=== PATIENT | female | born 1995 ===

== ENCOUNTER 2022-03-27 22:22 | Emergency (ER) | payer SELFPAY ==
[2022-03-28 00:05] VITALS: BP 108/60
[2022-03-28 00:43] LABS: Basophils % (Auto) 0.5 % (0.0-1.8); Eosinophils # (Auto) 0.3 K/mm3 (0.0-0.4); Eosinophils % (Auto) 3.7 % (0.0-4.3); Hematocrit 37.6 % (30.3-42.9); Hemoglobin 12.7 gm/dl (10.1-14.3); Lymphocytes # (Auto) 3.3 K/mm3 (1.2-5.4); Mean Corpuscular HGB Conc 34 % (30-34); Mean Corpuscular Volume 84 fl (79-97); Monocytes # (Auto) 0.5 K/mm3 (0.0-0.8); Monocytes % (Auto) 6.7 % (0.0-7.3); Platelet Count 176 K/mm3 (140-440); Red Blood Count 4.51 M/mm3 (3.65-5.03); Red Cell Distribution Width 13.8 % (13.2-15.2)
[2022-03-28 01:05] LABS: Alanine Aminotransferase 11 units/L (7-56); Albumin 4.5 g/dL (3.9-5); Blood Urea Nitrogen 13 mg/dL (7-17); Calcium 9.4 mg/dL (8.4-10.2); Hemolysis Index 9
[2022-03-28 01:09] LABS: BUN/Creatinine Ratio 26
[2022-03-28] MEDS ORDERED: FAMOTIDINE 20 MG/2 ML INJ IV ONE (02:03)
[2022-03-28] MEDS ORDERED: ONDANSETRON 4 MG/2 ML INJ IV ONE (02:03)
[2022-03-28] MEDS ORDERED: MORPHINE 4 MG/1 ML INJ IV ONE (02:03)
[2022-03-28] MEDS ORDERED: SODIUM CHLORIDE 0.9% 1000 ML 1,000 ML IV ONE (02:03)
--- NOTE | 2022-03-28 03:53 | Emergency Department Report ---
ED Abdominal Pain HPI - General Chief Complaint: Abdominal Pain Stated Complaint: ABDOMINAL PAIN Source: patient Mode of arrival: Ambulatory Limitations: Language Barrier - History of Present Illness Initial Comments: Patient is a 26-year-old female who is A0 who has no past medical history presents to the ED with complaint of acute onset persistent epigastric pain that radiates to the left upper quadrant and left lower quadrant area with intractable nausea and vomiting for the last 3 days. Patient states that her symptoms got worse in the last 12 hours with sore throat with a burning sensation.. Patient also states that she noticed that she was having some specks of blood streaked emesis a few hours before arrival in the ED. Patient denies diarrhea, chest pain, shortness of breath, nasal and sinus congestion, dizziness, syncope, headache, dysuria, urinary frequency and urgency, vaginal bleeding, vaginal discharge, low back pain, fever, chills, cough or palpitations. MD Complaint: abdominal pain (Epigastric, left upper quadrant and left lower quadrant pain), other (Nausea and vomiting) -: days(s) (3) Location: LUQ, LLQ, epigastric Radiation: LUQ, LLQ, epigastric Migration to: no migration Severity scale (0 -10): 7 Quality: cramping, sharp Consistency: constant Improves With: nothing Worsens With: vomiting Associated Symptoms: denies other symptoms, nausea, vomiting, hematemesis, anorexia. denies: diarrhea, fever, chills, constipation, dysuria, hematochezia, melena, hematuria, syncope, other - Related Data LMP Date: 03/05/22 Previous Rx's Medication Instructions Recorded Last Taken Type Dicyclomine [Bentyl] 20 mg PO Q6H PRN #30 tablet 03/28/22 Unknown Rx Famotidine [Pepcid] 20 mg PO BID #60 tablet 03/28/22 Unknown Rx Omeprazole 40 mg PO DAILY #60 tab 03/28/22 Unknown Rx Ondansetron [Zofran Odt] 4 mg PO Q6HR PRN #20 tab.rapdis 03/28/22 Unknown Rx cephALEXin [Keflex] 500 mg PO Q8HR #30 cap 03/28/22 Unknown Rx Allergies Allergy/AdvReac Type Severity Reaction Status Date / Time No Known Allergies Allergy Unverified 03/28/22 00:05 ED Review of Systems ROS: Stated complaint: ABDOMINAL PAIN Other details as noted in HPI Constitutional: denies: chills, fever Eyes: denies: eye pain, eye discharge, vision change ENT: denies: ear pain, throat pain Respiratory: denies: cough, shortness of breath, wheezing Cardiovascular: denies: chest pain, palpitations Endocrine: no symptoms reported Gastrointestinal: abdominal pain, nausea, vomiting, hematemesis. denies: diarrhea Genitourinary: denies: urgency, dysuria, discharge Musculoskeletal: denies: back pain, joint swelling, arthralgia Skin: denies: rash, lesions Neurological: denies: headache, weakness, paresthesias Psychiatric: denies: anxiety, depression Hematological/Lymphatic: denies: easy bleeding, easy bruising ED Past Medical Hx - Medications Home Medications: Home Medications Medication Instructions Recorded Confirmed Last Taken Type Dicyclomine [Bentyl] 20 mg PO Q6H PRN #30 tablet 03/28/22 Unknown Rx Famotidine [Pepcid] 20 mg PO BID #60 tablet 03/28/22 Unknown Rx Omeprazole 40 mg PO DAILY #60 tab 03/28/22 Unknown Rx Ondansetron [Zofran Odt] 4 mg PO Q6HR PRN #20 tab.rapdis 03/28/22 Unknown Rx cephALEXin [Keflex] 500 mg PO Q8HR #30 cap 03/28/22 Unknown Rx ED Physical Exam - General Limitations: Language Barrier General appearance: alert, in no apparent distress - Head Head exam: Present: atraumatic, normocephalic, normal inspection - Eye Eye exam: Present: normal appearance, PERRL, EOMI Pupils: Present: normal accommodation - ENT ENT exam: Present: normal exam, normal orophraynx, mucous membranes moist, TM's normal bilaterally, normal external ear exam - Neck Neck exam: Present: normal inspection, full ROM. Absent: tenderness - Respiratory Respiratory exam: Present: normal lung sounds bilaterally. Absent: respiratory distress, wheezes, rales, rhonchi, chest wall tenderness, accessory muscle use - Cardiovascular Cardiovascular Exam: Present: regular rate, normal rhythm, normal heart sounds. Absent: systolic murmur, diastolic murmur, rubs, gallop - GI/Abdominal GI/Abdominal exam: Present: soft, tenderness (Palpable mild epigastric and left lower quadrant tenderness), normal bowel sounds. Absent: guarding, rebound, hyperactive bowel sounds, hypoactive bowel sounds - Extremities Exam Extremities exam: Present: normal inspection, full ROM, normal capillary refill. Absent: tenderness - Back Exam Back exam: Present: normal inspection, full ROM. Absent: tenderness, CVA tenderness (R), CVA tenderness (L), muscle spasm, paraspinal tenderness, vertebral tenderness - Neurological Exam Neurological exam: Present: alert, oriented X3, CN II-XII intact, normal gait, reflexes normal - Psychiatric Psychiatric exam: Present: normal affect, normal mood - Skin Skin exam: Present: warm, dry, intact, normal color. Absent: rash ED Course Vital Signs 03/28/22 03/28/22 00:01 02:44 Temperature 99.1 F Pulse Rate 78 Respiratory 18 Rate Blood Pressure 108/60 [Right] O2 Sat by Pulse 100 98 Oximetry ED Medical Decision Making - Lab Data Result diagrams: 03/28/22 00:26 03/28/22 00:26 - Radiology Data Radiology results: report reviewed, [place] [address] Cat Scan Report Signed Patient: TAVON DIOR MR# : [id number] : 1995 Acct:[id number] Age/Sex: 26 / F ADM Date: 03/27/22 Loc: ED Attending Dr: Ordering Physician: SAM BHATIA Date of Service: 03/28/22 Procedure(s): CT abdomen pelvis w con Accession Number(s): [id number] cc: SAM BHATIA CT ABDOMEN AND PELVIS WITH CONTRAST INDICATION / CLINICAL INFORMATION: ABDOMINAL PAIN. TECHNIQUE: Axial CT images were obtained through the abdomen and pelvis after IV contrast. All CT scans at this location are performed using CT dose reduction for ALARA by means of automated exposure control. COMPARISON: None available. FINDINGS: LOWER CHEST: No significant abnormality of the imaged chest. LIVER: No focal lesion. No acute findings. GALLBLADDER / BILE DUCTS: No significant abnormality. Biliary ducts grossly unremarkable. SPLEEN: No significant abnormality. PANCREAS: No significant abnormality. ADRENALS: No significant abnormality. KIDNEYS/URETERS: No stones or hydronephrosis. No solid renal lesion. STOMACH / DUODENUM / SMALL BOWEL: The stomach, duodenum, and small bowel demonstrate no significant abnormality. No specific abnormality of the mesentery demonstrated. COLON: No significant abnormality. APPENDIX: No significant abnormality. PERITONEUM: No free air or free fluid are present within the abdomen or pelvis. LYMPH NODES: No significant adenopathy. AORTA / ARTERIES: No significant abnormality. IVC / VEINS: No significant abnormality. URINARY BLADDER: No significant abnormality. REPRODUCTIVE ORGANS: No significant abnormality. SKELETAL SYSTEM: No significant abnormality. ADDITIONAL ABDOMINAL/PELVIC FINDINGS: None. IMPRESSION: 1. No imaging findings to suggest etiology of the provided symptoms. Signer Name: Patricio Wilder II, MD Signed: 03/28/2022 3:47 AM Workstation Name: [id number] Transcribed By: SHERIF Dictated By: PATRICIO WILDER II, MD Electronically Authenticated By: PATRICIO WILDER II, MD Signed Date/Time: 03/28/22346 DD/ 5 TD/TT: - Medical Decision Making This is a 26-year-old female who is A0 who has no past medical history presents to the ED with complaint of acute onset persistent epigastric pain that radiates to the left upper quadrant and left lower quadrant area with intractable nausea and vomiting for the last 3 days. Patient states that her symptoms got worse in the last 12 hours with sore throat with a burning sensation.. Patient also states that she noticed that she was having some specks of blood streaked emesis a few hours before arrival in the ED. In the ED, patient is alert and oriented x3 and is not in any distress. Patient is hemodynamically stable. Patient was treated for pain in the ED and also given antiemetics and antacids as well as normal saline 1 L IV bolus x1. Lab test results were reviewed and are all nonactionabl except for urinalysis that showed urinary tract infection e. The abdomen pelvis CT scan with IV contrast showed no acute abnormalities in the abdomen and pelvis area. Patient symptoms are likely due to GERD or gastroenteritis. On reevaluation, patient felt better and was discharged home on medications. Patient was advised to return to the ED immediately if symptoms get worse. - Differential Diagnosis GERD; gastroenteritis; UTI; ; ovarian cyst; colitis; Critical care attestation.: If time is entered above; I have spent that time in minutes in the direct care of this critically ill patient, excluding procedure time. ED Disposition Clinical Impression: Nausea and vomiting in adult patient, Abdominal pain in female, Acute urinary tract infection, Viral gastroenteritis GERD (gastroesophageal reflux disease) Qualifiers: Esophagitis presence: esophagitis presence not specified Qualified Code(s): K21.9 - Gastro-esophageal reflux disease without esophagitis Disposition: HOME / SELF CARE / HOMELESS Is pt being admited?: No Does the pt Need Aspirin: No Condition: Stable Instructions: Abdominal Pain (ED), Viral Gastroenteritis, Adult, [id number], Heartburn, Word-pl-Clii, Abdominal Pain, Adult, [id number], Nausea and Vomiting, Adult, [id number]-[id number], Urinary Tract Infection, Adult, [id number], Gastroesophageal Reflux Disease, Adult, [id number] Additional Instructions: Se revisaron todos los resultados de las pruebas de laboratorio y no son procesables, excepto el anlisis de orina que mostr annie infeccin significativa del tracto urinario. La tomografa computarizada de abdomen y pelvis con contraste intravenoso no mostr anomalas agudas. Por lo tanto, es probable que kermit sntomas se deban a complicaciones por ERGE o gastroenteritis viral. Por lo tanto, mantenga annie dieta de lquidos luana jam 12 a 24 horas, natalia muchos lquidos, tome medicamentos y millicent un seguimiento con ashley mdico de atencin primaria en 5 a 7 zambrano para annie reevaluacin. Regrese al servicio de urgencias inmediatamente si los sntomas empeoran. Prescriptions: Dicyclomine [Bentyl] 20 mg PO Q6H PRN #30 tablet PRN Reason: Abdominal pain cephALEXin [Keflex] 500 mg PO Q8HR #30 cap Omeprazole 40 mg PO DAILY #60 tab Famotidine [Pepcid] 20 mg PO BID #60 tablet Ondansetron [Zofran Odt] 4 mg PO Q6HR PRN #20 tab.rapdis PRN Reason: Nausea Referrals: [facility] [Provider Group] - 7-10 days Forms: Work/School Release Form(ED) Time of Disposition: 05:13 Print Language: FAROESE
[2022-03-28 04:49] LABS: Bacteria,Urine 1+ /HPF (Negative); Mucus,Urine FEW /HPF
[2022-03-28 05:06] LABS: Color,Urine Yellow (Yellow)
[2022-03-28 05:07] LABS: Bilirubin,Urine Negative (Negative); Blood,Urine Negative (Negative)
== END 2022-03-28 05:53 | disposition home or self-care (01) ==
LOC: ED 22:22
DX: N39.0 Urinary tract infection, site not specified (principal); A08.4 Viral intestinal infection, unspecified; K21.9 Gastro-esophageal reflux disease without esophagitis; R11.2 Nausea with vomiting, unspecified; R10.9 Unspecified abdominal pain; Z79.899 Other long term (current) drug therapy
CPT/HCPCS: 36415; 74177; 80053; 81001; 83690; 84703; 85025; 87076; 87086; 87186; 96361; 96374; 96375; 99284; J2270; J2405; J3490; J7030; Q9967